=== PATIENT | female | born 1995 | race Caucasian/White ===

== ENCOUNTER 2021-11-21 15:39 | Emergency (ER) | payer OTHER ==
[2021-11-21] MEDS ORDERED: PYRIDIUM200 MG PO (19:09)
[2021-11-21] MEDS ORDERED: IBUPROFEN400 MG PO (19:09)
[2021-11-21] MEDS ORDERED: CEPHALEXIN500 M1 PO (19:09)
== END 2021-11-21 19:15 | disposition home or self-care (01) ==
LOC: ER1 15:39
DX: T83.84XA Pain due to genitourinary prosthetic devices, implants and grafts, initial encounter (principal); N39.0 Urinary tract infection, site not specified; F17.200 Nicotine dependence, unspecified, uncomplicated; Z88.0 Allergy status to penicillin; Y83.8 Other surgical procedures as the cause of abnormal reaction of the patient, or of later complication, without mention of misadventure at the time of the procedure
CPT/HCPCS: 74018; 81001; 84703; 87077; 87086; 87186; 99284